=== PATIENT | female | born 1940 | race Caucasian/White ===

== ENCOUNTER 2016-06-16 09:50 | Outpatient (CLI) | payer MEDICARE, OTHER | END 2016-06-16 09:51 | disposition home or self-care (01) | DX: E03.9 Hypothyroidism, unspecified (principal) ==

== ENCOUNTER 2017-06-17 12:03 | Outpatient (CLI) | payer MEDICARE, OTHER | END 2017-06-17 12:04 | disposition EMS.NT | LOC: EMS 12:03 | PROVIDERS: ATTEND Surgery | DX: M25.511 Pain in right shoulder (principal); W18.39XA Other fall on same level, initial encounter; Y93.01 Activity, walking, marching and hiking; Y92.512 Supermarket, store or market as the place of occurrence of the external cause ==

== ENCOUNTER 2017-06-17 13:03 | Emergency (ER) | payer MEDICARE, OTHER ==
[2017-06-17] MEDS ORDERED: ACETAMINOPHEN 325 MG TABLET PO STA (14:27)
--- NOTE | 2017-06-17 14:28 | ED Physician Documentation ---
PD HPI UPPER EXT INJURY - Stated complaint Stated Complaint: R SHOULDER INJ - Chief complaint Chief Complaint: Ext Problem - History obtained from History obtained from: Patient - History of Present Illness Location: Other (She was walking on a flat surface and her knee gave out on her , that is not uncommon. She landed directly on her right shoulder and has moderate pain there. Denies head or neck injury. No other injuries.) Review of Systems Constitutional: denies: Fever, Chills Nose: denies: Rhinorrhea / runny nose, Congestion Cardiac: denies: Chest pain / pressure, Palpitations Respiratory: denies: Dyspnea PD PAST MEDICAL HISTORY - Past Medical History Past Medical History: Yes Endocrine/Autoimmune: HyPOthyroidism - Past Surgical History Past Surgical History: No - Present Medications Home Medications: Ambulatory Orders Medication Instructions Recorded Confirmed Levothyroxine [Synthroid] 150 mcg PO DAILY 01/26/15 01/26/15 HYDROcod/ACETAM 5/325 [[place] 5/325] 1 - 2 ea PO Q6H PRN #20 tablet 06/17/17 - Allergies Allergies/Adverse Reactions: Allergies Allergy/AdvReac Type Severity Reaction Status Date / Time No Known Drug Allergies Allergy Verified 06/17/17 13:45 - Social History Does the pt smoke?: No Smoking Status: Never smoker Does the pt drink ETOH?: Yes ETOH Use: Wine Does the pt have substance abuse?: No - Immunizations Immunizations are current?: No Immunizations: TDAP >10years/unknown - POLST Patient has POLST: No PD ED PE NORMAL - Vitals Vital signs reviewed: Yes - General General: Alert and oriented X 3, No acute distress, Well developed/nourished - HEENT HEENT: PERRL, EOMI - Neck Neck: Supple, no meningeal sign, No bony TTP - Respiratory Respiratory: Clear bilaterally - Back Back: No spinal TTP - Extremities Extremities: Other (Focally tender in the right upper humerus, cannot range the shoulder at all, the elbow and wrist seem nontender with good range of motion and normal sensation and radial pulse. She is tender to the upper ribs kind of in the axilla on the right. No deformity.) - Neuro Neuro: Alert and oriented X 3, Normal speech Results - Vitals Vitals: Vital Signs - 24 hr 06/17/17 06/17/17 13:41 15:47 Temperature 36.2 C L 36.8 C Heart Rate 62 68 Respiratory 20 18 Rate Blood Pressure 202/59 H 148/60 H O2 Saturation 97 97 Oxygen O2 Source Room air Departure - Departure Disposition: 01 Home, Self Care Clinical Impression: Right humeral fracture Qualifiers: Encounter type: initial encounter Humerus Location: proximal Fracture type: closed Fracture morphology: other fracture Fracture alignment: nondisplaced Qualified Code(s): S42.294A - Other nondisplaced fracture of upper end of right humerus, initial encounter for closed fracture Contusion of right chest wall Qualifiers: Encounter type: initial encounter Qualified Code(s): S20.211A - Contusion of right front wall of thorax, initial encounter Condition: Good Record reviewed to determine appropriate education?: Yes Instructions: Humerus Fx Follow-Up: [facility] [Provider Group] - Within 1 week Prescriptions: HYDROcod/ACETAM 5/325 [[place] 5/325] 1 - 2 ea PO Q6H PRN #20 tablet PRN Reason: Pain Comments: Tylenol as needed for pain. Keep the sling on for the most part until you follow-up with the orthopedic surgeon. You can follow-up with your orthopedic surgeon in [place] or the one on the [place], the one in [facility] number is listed on this form. Your blood pressure was elevated today on check into the emergency department. This does not mean that you have hypertension, it is a common phenomenon to come to the emergency department and have elevated blood pressure. I recommend that you see your primary care physician within the week to have it rechecked when you are feeling better. Discharge Date/Time: 06/17/17 15:47
--- NOTE | 2017-06-17 15:17 | XRAY Report ---
EXAM: RIGHT SHOULDER RADIOGRAPHY EXAM DATE: 06/17/2017 02:50 PM. CLINICAL HISTORY: Fell. COMPARISON: None. TECHNIQUE: 3 views. FINDINGS: Acute impacted fracture of the right humeral neck. Severe right glenohumeral degenerative joint disease with large osteophytes and joint space narrowing . Minimal acromioclavicular degenerative joint disease. No dislocation. Bones are demineralized. IMPRESSION: 1. Acute impacted fracture of the right humeral neck. 2. Severe right glenohumeral degenerative joint disease. [facility] Referring Provider Line: [phone] SITE ID: [id number]
--- NOTE | 2017-06-17 15:17 | XRAY Preliminary Report ---
Exam: XR SHOULDER 3 VIEW RT IMPRESSION: 1. Acute impacted fracture of the right humeral neck. 2. Severe right glenohumeral degenerative joint disease. [facility] SITE ID: [id number]
--- NOTE | 2017-06-17 15:20 | XRAY Preliminary Report ---
Exam: XR RIBS W/PA CHEST RT IMPRESSION: Acute impacted right humeral neck fracture. No acute rib fractures are seen. [facility] SITE ID: [id number]
--- NOTE | 2017-06-17 15:20 | XRAY Report ---
EXAM: RIGHT RIB RADIOGRAPHY EXAM DATE: 06/17/2017 02:51 PM. CLINICAL HISTORY: Rib injury. Fall. Right-sided rib pain. COMPARISON: None. TECHNIQUE: 1 view of the chest and 2 views of the ribs. FINDINGS: Acute impacted right humeral neck fracture. No acute rib fractures are seen. Normal heart size. Lungs are clear. No pleural effusion or pneumothorax. IMPRESSION: Acute impacted right humeral neck fracture. No acute rib fractures are seen. [facility] Referring Provider Line: [phone] SITE ID: [id number]
[2017-06-17 15:48] VITALS: BP 148/60
== END 2017-06-17 15:47 | disposition home or self-care (01) ==
LOC: ED 13:03
DX: S42.294A Other nondisplaced fracture of upper end of right humerus, initial encounter for closed fracture (principal); S20.211A Contusion of right front wall of thorax, initial encounter; M19.011 Primary osteoarthritis, right shoulder; R03.0 Elevated blood-pressure reading, without diagnosis of hypertension; W18.39XA Other fall on same level, initial encounter
CPT/HCPCS: 71101; 73030; 99283; A9270

== ENCOUNTER 2017-12-01 09:22 | Outpatient (CLI) | payer MEDICARE, OTHER ==
[2017-12-01 17:39] LABS: ALBUMIN 4.4 g/dL (3.2-5.5); ALBUMIN/GLOBULIN RATIO 1.5 (1.0-2.2); ALKALINE PHOSPHATASE 46 IU/L (42-121); ALT ALANINE AMINOTRANSFERASE 15 IU/L (10-60); AST ASPARTATE AMINOTRANSFERASE 22 IU/L (10-42); BUN - BLOOD UREA NITROGEN 23 mg/dL (6-20); CALCIUM 9.4 mg/dL (8.5-10.3); CARBON DIOXIDE - CO2 26 mmol/L (21-32); CHLORIDE 102 mmol/L (101-111); CHOL/HDL RATIO 2.3 (<4.4); CHOLESTEROL 256 mg/dL; CREATININE 0.7 mg/dL (0.4-1.0); GFR - MDRD 81 (>89); GLUCOSE 91 mg/dL (70-100); HDL CHOLESTEROL 110 mg/dL; LDL CHOLESTEROL,CALCULATED 134 mg/dL; LDL/HDL RATIO 1.2 (<4.4); SODIUM 135 mmol/L (135-145); TOTAL PROTEIN 7.3 g/dL (6.7-8.2); VLDL CHOLESTEROL 12 mg/dL
[2017-12-01 18:00] LABS: HGB - HEMOGLOBIN 12.8 g/dL (12.0-16.0); MEAN CORPUSCULAR HEMOGLOBIN 29.5 pg (27.0-31.0); MEAN CORPUSCULAR HGB CONC 33.6 g/dL (32.0-36.0); MEAN CORPUSCULAR VOLUME 87.8 fL (81.0-99.0); MEAN PLATELET VOLUME 7.8 fL (7.9-10.8); RED BLOOD COUNT 4.33 10^6/uL (4.20-5.40); RED CELL DISTRIBUTION WIDTH 14.2 % (12.0-15.0); WHITE BLOOD COUNT 5.5 x10^3/uL (4.8-10.8)
== END 2017-12-01 09:23 | disposition home or self-care (01) ==
LOC: LAB.F 09:22
PROVIDERS: ATTEND Internal Medicine
DX: E03.9 Hypothyroidism, unspecified (principal); R53.83 Other fatigue; E78.5 Hyperlipidemia, unspecified
CPT/HCPCS: 36415; 80053; 80061; 82306; 83036; 83721; 84443; 85027

== ENCOUNTER 2023-02-18 18:34 | Outpatient (CLI) | payer MEDICARE, OTHER | END 2023-02-18 18:35 | disposition critical access hospital (66) | LOC: EMS 18:34 | DX: S40.022A Contusion of left upper arm, initial encounter (principal); W19.XXXA Unspecified fall, initial encounter; R41.82 Altered mental status, unspecified | CPT/HCPCS: A0425; A0429 ==

== ENCOUNTER 2023-02-18 19:06 | Emergency (ER) | payer MEDICARE, OTHER ==
--- NOTE | 2023-02-18 19:39 | XRAY Report ---
PROCEDURE: Chest 1 View X-Ray INDICATIONS: AMS TECHNIQUE: One view of the chest was acquired. COMPARISON: Chest x-ray 06/17/2017 FINDINGS: Surgical changes and devices: None. Lungs and pleura: No pleural effusions or pneumothorax. Lungs are clear. Mediastinum: Mediastinal contours appear normal. Heart size is enlarged. Bones and chest wall: No suspicious bony lesions. Overlying soft tissues appear unremarkable. IMPRESSION: No acute cardiopulmonary process. Reviewed by: Barbie Ames MD on 02/18/2023 7:37 PM PST Approved by: Barbie Ames MD on 02/18/2023 7:37 PM PST Station ID: [id number]
--- NOTE | 2023-02-18 19:39 | XRAY Report ---
PROCEDURE: Humerus LT INDICATIONS: glf, significant swelling TECHNIQUE: 2 views of the humerus were acquired. COMPARISON: None. FINDINGS: Bones: Comminuted and displaced mid shaft humeral fracture. There is approximately 4.3 cm overlap of proximal distal fragments. Soft tissues: No suspicious soft tissue calcifications or masses. IMPRESSION: Comminuted and displaced mid diaphyseal humeral fracture. Reviewed by: Barbie Ames MD on 02/18/2023 7:38 PM PST Approved by: Barbie Ames MD on 02/18/2023 7:38 PM PST Station ID: [id number]
--- NOTE | 2023-02-18 19:51 | ED Physician Documentation ---
PD HPI ALTERED MENTAL STATUS - Stated complaint Stated Complaint: AMS - Chief complaint Chief Complaint: Neuro - History obtained from History obtained from: EMS - Additional information Additional information: 83-year-old female with history of hypothyroidism presents by EMS from her home for altered mental status. Patient lives at home alone. She was last seen normal 2 days ago by neighbors. They checked on her today and found her on the floor and called 911. When EMS arrived the patient was confused, thinking that she was in a motel. She did not remember falling, however there is gross d eformity to her left arm. They were able to call the patient's daughter, who confirmed that the patient is not on any blood thinners. On arrival patient is confused, she states "I do not know why I was at the hotel". She smelled strongly of urine and her left upper extremity had significant swelling and bruising. PD PAST MEDICAL HISTORY - Past Medical History Endocrine/Autoimmune: HyPOthyroidism - Past Surgical History Past Surgical History: No - Present Medications Home Medications: Ambulatory Orders Medication Instructions Recorded Confirmed Levothyroxine [Synthroid] 150 mcg PO DAILY 01/26/15 01/26/15 HYDROcod/ACETAM 5/325 [[place] 5/325] 1 - 2 ea PO Q6H PRN #20 tablet 06/17/17 - Allergies Allergies/Adverse Reactions: Allergies Allergy/AdvReac Type Severity Reaction Status Date / Time No Known Drug Allergies Allergy Verified 02/18/23 19:21 - Social History Does the pt smoke?: No Smoking Status: Never smoker Does the pt drink ETOH?: Yes Does the pt have substance abuse?: No - Immunizations Immunizations are current?: No Immunizations: TDAP >10years/unknown - POLST Patient has POLST: No PD ED PE NORMAL - Vitals Vital signs reviewed: Yes - General General: No acute distress, Other (smelling of urine, oriented x2) - Neck Neck: Supple, no meningeal sign, No bony TTP - Cardiac Cardiac: RRR - Respiratory Respiratory: No respiratory distress, Clear bilaterally - Abdomen Abdomen: Soft, Non tender, Non distended - Derm Derm: Warm and dry, No rash, Other (bruising LUE) - Extremities Extremities: Other (Deformity LUE with moderate to severe swelling. Compartments soft. 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, No motor deficit, No sensory deficit, Normal speech, Other (AOx2) Results - Vitals Vitals: Vital Signs - 24 hr 02/18/23 02/18/23 02/18/23 19:18 19:21 21:21 Temperature 36.3 C L Heart Rate 83 78 78 Respiratory 20 22 20 Rate Blood Pressure 163/68 H 163/68 H O2 Saturation 96 98 98 02/18/23 02/19/23 02/19/23 23:00 01:00 03:00 Temperature Heart Rate 83 76 80 Respiratory 20 18 16 Rate Blood Pressure 149/55 H 141/63 H 165/58 H O2 Saturation 100 99 98 Oxygen O2 Source Room air - Labs Labs: Laboratory Tests 02/18/23 02/18/23 02/18/23 19:26 19:26 19:26 WBC 16.2 H RBC 3.95 L Hgb 11.3 L Hct 34.4 L MCV 87.1 MCH 28.6 MCHC 32.8 RDW 13.2 Plt Count 300 MPV 9.7 Neut # (Auto) 13.2 H Lymph # (Auto) 1.8 Chambers # (Auto) 1.1 H Eos # (Auto) 0.0 Baso # (Auto) 0.0 Absolute Nucleated RBC 0.00 Nucleated RBC % 0.0 PT 12.3 INR 1.1 Sodium 137 Potassium 3.8 Chloride 100 L Carbon Dioxide 25 Anion Gap 12.0 BUN 24 H Creatinine 0.7 Estimated GFR (MDRD) 80 L Glucose 141 H Lactic Acid Calcium 9.7 Phosphorus 3.1 Magnesium 1.9 Total Bilirubin 0.8 AST 50 H ALT 24 Alkaline Phosphatase 55 Total Creatine Kinase 1554 H* Total Protein 7.1 Albumin 4.8 Globulin 2.3 Albumin/Globulin Ratio 2.1 Lipase < 10 L Urine Color Urine Clarity Urine pH Ur Specific [place] Urine Protein Urine Glucose (UA) Urine Ketones Urine Occult Blood Urine Nitrite Urine Bilirubin Urine Urobilinogen Ur Leukocyte Esterase Urine RBC Urine WBC Ur Squamous Epith Cells Urine Bacteria Ur Microscopic Review Urine Culture Comments Nasal Adenovirus (PCR) Nasal B. parapertussis DNA (PCR) Nasal Coronavir 229E PCR Nasal Coronavir HKU1 PCR Nasal Coronavir NL63 PCR Nasal Coronavir OC43 PCR Nasal Enterovir/Rhinovir PCR Nasal Influenza B PCR Nasal Influenza A PCR Nasal Parainfluen 1 PCR Nasal Parainfluen 2 PCR Nasal Parainfluen 3 PCR Nasal Parainfluen 4 PCR Nasal RSV (PCR) Nasal B.pertussis DNA PCR Nasal C.pneumoniae (PCR) [place] Human Metapneumo PCR Nasal M.pneumoniae (PCR) Nasal SARS-CoV-2 (PCR) 02/18/23 02/18/23 02/18/23 19:44 20:32 22:50 WBC RBC Hgb Hct MCV MCH MCHC RDW Plt Count MPV Neut # (Auto) Lymph # (Auto) Chambers # (Auto) Eos # (Auto) Baso # (Auto) Absolute Nucleated RBC Nucleated RBC % PT INR Sodium Potassium Chloride Carbon Dioxide Anion Gap BUN Creatinine Estimated GFR (MDRD) Glucose Lactic Acid 2.5 H Calcium Phosphorus Magnesium Total Bilirubin AST ALT Alkaline Phosphatase Total Creatine Kinase Total Protein Albumin Globulin Albumin/Globulin Ratio Lipase Urine Color YELLOW Urine Clarity CLEAR Urine pH 6.0 Ur Specific [place] >=1.030 H Urine Protein 30 H Urine Glucose (UA) NEGATIVE Urine Ketones 15 H Urine Occult Blood TRACE-INTA Urine Nitrite NEGATIVE Urine Bilirubin NEGATIVE Urine Urobilinogen 0.2 (NORMAL) Ur Leukocyte Esterase NEGATIVE Urine RBC 6-10 H Urine WBC 0-3 Ur Squamous Epith Cells NONE SEEN Urine Bacteria None Seen Ur Microscopic Review INDICATED Urine Culture Comments NOT INDICATED Nasal Adenovirus (PCR) NOT DETECTED Nasal B. parapertussis DNA (PCR) NOT DETECTED Nasal Coronavir 229E PCR NOT DETECTED Nasal Coronavir HKU1 PCR NOT DETECTED Nasal Coronavir NL63 PCR NOT DETECTED Nasal Coronavir OC43 PCR NOT DETECTED Nasal Enterovir/Rhinovir PCR NOT DETECTED Nasal Influenza B PCR NOT DETECTED Nasal Influenza A PCR NOT DETECTED Nasal Parainfluen 1 PCR NOT DETECTED Nasal Parainfluen 2 PCR NOT DETECTED Nasal Parainfluen 3 PCR NOT DETECTED Nasal Parainfluen 4 PCR NOT DETECTED Nasal RSV (PCR) NOT DETECTED Nasal B.pertussis DNA PCR NOT DETECTED Nasal C.pneumoniae (PCR) NOT DETECTED [place] Human Metapneumo PCR NOT DETECTED Nasal M.pneumoniae (PCR) NOT DETECTED Nasal SARS-CoV-2 (PCR) NOT DETECTED 02/19/23 02:08 WBC RBC Hgb Hct MCV MCH MCHC RDW Plt Count MPV Neut # (Auto) Lymph # (Auto) Chambers # (Auto) Eos # (Auto) Baso # (Auto) Absolute Nucleated RBC Nucleated RBC % PT INR Sodium Potassium Chloride Carbon Dioxide Anion Gap BUN Creatinine Estimated GFR (MDRD) Glucose Lactic Acid Calcium Phosphorus Magnesium Total Bilirubin AST ALT Alkaline Phosphatase Total Creatine Kinase 1595 H* Total Protein Albumin Globulin Albumin/Globulin Ratio Lipase Urine Color Urine Clarity Urine pH Ur Specific [place] Urine Protein Urine Glucose (UA) Urine Ketones Urine Occult Blood Urine Nitrite Urine Bilirubin Urine Urobilinogen Ur Leukocyte Esterase Urine RBC Urine WBC Ur Squamous Epith Cells Urine Bacteria Ur Microscopic Review Urine Culture Comments Nasal Adenovirus (PCR) Nasal B. parapertussis DNA (PCR) Nasal Coronavir 229E PCR Nasal Coronavir HKU1 PCR Nasal Coronavir NL63 PCR Nasal Coronavir OC43 PCR Nasal Enterovir/Rhinovir PCR Nasal Influenza B PCR Nasal Influenza A PCR Nasal Parainfluen 1 PCR Nasal Parainfluen 2 PCR Nasal Parainfluen 3 PCR Nasal Parainfluen 4 PCR Nasal RSV (PCR) Nasal B.pertussis DNA PCR Nasal C.pneumoniae (PCR) [place] Human Metapneumo PCR Nasal M.pneumoniae (PCR) Nasal SARS-CoV-2 (PCR) PD Medical Decision Making - ED course Complexity details: reviewed old records, reviewed results, re-evaluated patient, considered differential, d/w patient, d/w family ED course: Generalized weakness and patient found on the ground. Unknown how long patient was on the floor. Patient denies acute complaints, but does have pain in her left arm when it is jostled, indeed there is very significant deformity and bruising of the left upper extremity. Despite the swelling compartments are still soft and she is neurovascularly intact. Laboratory work shows elevated CK, intact renal function. CT of the brain and C-spine revealed no acute abnormalities. Chest x-ray is negative for acute findings. X-ray of the left humerus is significant for displaced and comminuted midshaft humeral fracture. Patient placed in coaptation splint and sling with help of nursing staff. We will repeat CK and will continue patient on IV fluids. Repeat CK shows minimal change, however no additional significant rise. We will repeat laboratory work in the morning, however since CK is stable this is reassuring. Attempted to ambulate patient, however she is profoundly weak and cannot even sit up without full support, otherwise she immediately falls back down to the bed. Anticipate a difficult discharge home. Physical therapy and Occupational Therapy consulted. Social work consulted. Family is not available at this time, EMS states that patient normally lives at home alone. Departure - Departure Clinical Impression: Elevated CK, Ground-level fall Altered mental status Qualifiers: Altered mental status type: disorientation Qualified Code(s): R41.0 - Disorientation, unspecified Humerus shaft fracture Qualifiers: Encounter type: initial encounter Fracture type: closed Fracture morphology: comminuted Fracture alignment: displaced Laterality: left Qualified Code(s): S42.352A - Displaced comminuted fracture of shaft of humerus, left arm, initial encounter for closed fracture Condition: Stable Forms: PCP List
[2023-02-18 19:52] LABS: BASOPHILS % (AUTO) 0.2 %; HCT - HEMATOCRIT 34.4 % (37.0-47.0); HGB - HEMOGLOBIN 11.3 g/dL (12.0-16.0); LYMPHOCYTES # (AUTO) 1.8 10^3/uL (1.5-3.5); LYMPHOCYTES % (AUTO) 11.2 %; MEAN CORPUSCULAR HEMOGLOBIN 28.6 pg (27.0-31.0); MEAN CORPUSCULAR HGB CONC 32.8 g/dL (32.0-36.0); MEAN CORPUSCULAR VOLUME 87.1 fL (81.0-99.0); MEAN PLATELET VOLUME 9.7 fL (7.9-10.8); MONOCYTES # (AUTO) 1.1 10^3/uL (0.0-1.0); NEUTROPHILS # (AUTO) 13.2 10^3/uL (1.5-6.6); NEUTROPHILS % (AUTO) 81.1 %; PLT - PLATELET COUNT 300 10^3/uL (130-450); RED BLOOD COUNT 3.95 10^6/uL (4.20-5.40); RED CELL DISTRIBUTION WIDTH 13.2 % (12.0-15.0); WHITE BLOOD COUNT 16.2 x10^3/uL (4.8-10.8)
[2023-02-18 20:07] LABS: ALBUMIN 4.8 g/dL (3.2-5.5); ALBUMIN/GLOBULIN RATIO 2.1 (1.0-2.2); ALKALINE PHOSPHATASE 55 IU/L (42-121); ALT ALANINE AMINOTRANSFERASE 24 IU/L (10-60); AST ASPARTATE AMINOTRANSFERASE 50 IU/L (10-42); BILIRUBIN,TOTAL 0.8 mg/dL (0.2-1.0); BUN - BLOOD UREA NITROGEN 24 mg/dL (6-20); CALCIUM 9.7 mg/dL (8.5-10.3); CARBON DIOXIDE - CO2 25 mmol/L (21-32); CHLORIDE 100 mmol/L (101-111); CREATININE 0.7 mg/dL (0.6-1.3); GFR - MDRD 80 (>89); GLUCOSE 141 mg/dL (74-104); MAGNESIUM 1.9 mg/dL (1.7-2.3); PHOSPHORUS 3.1 mg/dL (2.5-5.0); POTASSIUM 3.8 mmol/L (3.5-4.5); SODIUM 137 mmol/L (135-145); TOTAL PROTEIN 7.1 g/dL (6.4-8.9)
[2023-02-18 20:09] LABS: LIPASE < 10 U/L (11-82)
[2023-02-18 20:10] LABS: CK- CREATINE KINASE 1554 IU/L (30-223)
[2023-02-18 20:16] LABS: INR 1.1 (0.8-1.2); PT - PROTHROMBIN TIME 12.3 secs (9.9-12.6)
[2023-02-18] MEDS: SODIUM CHLORIDE 0.9% 1,000 ML IV STA ×2 (20:17→20:45)
--- NOTE | 2023-02-18 20:40 | CT Report ---
PROCEDURE: CERVICAL SPINE WO INDICATIONS: glf, ams TECHNIQUE: Noncontrast 3 mm thick sections acquired from the skull base to the T4 level. Sagittal and coronal r eformats were then constructed. For radiation dose reduction, the following was used: automated exp osure control, adjustment of mA and/or kV according to patient size. COMPARISON: None. FINDINGS: Image quality: Excellent. Bones: No fractures or dislocations. Visualized superior ribs are intact. Soft tissues: Prevertebral soft tissues are normal in thickness. No paravertebral hematomas. No ap ical pneumothoraces. IMPRESSION: No acute, displaced fracture or traumatic subluxation. Reviewed by: Ryan So on 02/18/2023 8:39 PM [facility] Approved by: Ryan So on 02/18/2023 8:39 PM [facility] Station ID: [id number]
--- NOTE | 2023-02-18 20:41 | CT Report ---
PROCEDURE: HEAD WO INDICATIONS: glf, ams TECHNIQUE: Noncontrast 4.5 mm thick angled axial sections acquired from the foramen magnum to the vertex. For r adiation dose reduction, the following was used: automated exposure control, adjustment of mA and/or kV according to patient size. COMPARISON: None. FINDINGS: Image quality: Excellent. CSF spaces: Basal cisterns are patent. No extra-axial fluid collections. Ventricles are normal in size and shape. Brain: No midline shift. No intracranial masses or hemorrhage. Aburto-white matter interface is norm al. Skull and face: Calvarium and visualized facial bones are intact, without suspicious lesions. Sinuses: Visualized sinuses and mastoids are clear. IMPRESSION: No acute intracranial pathology. Reviewed by: Ryan So on 02/18/2023 8:40 PM [facility] Approved by: Ryan So on 02/18/2023 8:40 PM [facility] Station ID: [id number]
[2023-02-18 21:29] LABS: B. PARAPERTUSSIS- RESP PCR PAN NOT DETECTED; B. PERTUSSIS- RESP PCR PANEL NOT DETECTED; C. PNEUMONIAE- RESP PCR PANEL NOT DETECTED; CORONAVIRUS 229E-RESP PCR NOT DETECTED; CORONAVIRUS HKU1-RESP PCR NOT DETECTED; CORONAVIRUS NL63-RESP PCR NOT DETECTED; CORONAVIRUS OC43-RESP PCR NOT DETECTED; HUMAN METAPNEUMOVIRUS NOT DETECTED; INFLUENZA A- RESP PCR PANEL NOT DETECTED; INFLUENZA B - RESP PCR PANEL NOT DETECTED; M. PNEUMONIAE- RESP PCR PANEL NOT DETECTED; PARAINFLUENZA VIRUS 1 NOT DETECTED; PARAINFLUENZA VIRUS 2 NOT DETECTED; PARAINFLUENZA VIRUS 3 NOT DETECTED; PARAINFLUENZA VIRUS 4 NOT DETECTED; RHINOVIRUS/ENTEROVIRUS NOT DETECTED; RSV- RESP PCR PANEL NOT DETECTED; SARS-CoV-2 -RESP PCR PANEL NOT DETECTED
[2023-02-18 23:15] LABS: BILIRUBIN,URINE NEGATIVE (NEGATIVE); GLUCOSE, URINE (UA) NEGATIVE (NEGATIVE); KETONES,URINE (UA) 15 mg/dL (NEGATIVE); LEUKOCYTE ESTERASE, URINE NEGATIVE (NEGATIVE); NITRITE,URINE NEGATIVE (NEGATIVE); OCCULT BLOOD,URINE TRACE-INTA (NEGATIVE); PROTEIN,URINE 30 mg/dL (NEGATIVE); UROBILINOGEN,URINE 0.2 (NORMAL) E.U./dL (NORMAL)
[2023-02-18 23:18] LABS: CLARITY,URINE CLEAR (CLEAR)
[2023-02-18 23:40] LABS: WBC,URINE 0-3 /HPF (0-5)
[2023-02-18 23:41] LABS: BACTERIA,URINE None Seen /HPF (None Seen); SQUAMOUS EPITHELIAL CELL,UR NONE SEEN (<= Few)
[2023-02-19] MEDS: SODIUM CHLORIDE 0.9% 1,000 ML IV STA ×2 (03:08→14:56)
[2023-02-19] MEDS: ACETAMINOPHEN 325 MG TABLET PO STA (06:20)
[2023-02-19] MEDS: oxyCODONE 5 MG TABLET PO STA (06:20)
[2023-02-19 06:41] LABS: BASOPHILS % (AUTO) 0.2 %; HCT - HEMATOCRIT 29.5 % (37.0-47.0); HGB - HEMOGLOBIN 9.6 g/dL (12.0-16.0); LYMPHOCYTES # (AUTO) 2.8 10^3/uL (1.5-3.5); LYMPHOCYTES % (AUTO) 23.3 %; MEAN CORPUSCULAR HEMOGLOBIN 28.7 pg (27.0-31.0); MEAN CORPUSCULAR HGB CONC 32.5 g/dL (32.0-36.0); MEAN CORPUSCULAR VOLUME 88.3 fL (81.0-99.0); MEAN PLATELET VOLUME 9.9 fL (7.9-10.8); MONOCYTES # (AUTO) 1.4 10^3/uL (0.0-1.0); MONOCYTES % (AUTO) 11.3 %; NEUTROPHILS # (AUTO) 7.9 10^3/uL (1.5-6.6); NEUTROPHILS % (AUTO) 64.8 %; PLT - PLATELET COUNT 238 10^3/uL (130-450); RED BLOOD COUNT 3.34 10^6/uL (4.20-5.40); RED CELL DISTRIBUTION WIDTH 13.4 % (12.0-15.0); WHITE BLOOD COUNT 12.2 x10^3/uL (4.8-10.8)
[2023-02-19 06:59] LABS: ALBUMIN 3.9 g/dL (3.2-5.5); ALBUMIN/GLOBULIN RATIO 2.2 (1.0-2.2); BILIRUBIN,TOTAL 0.7 mg/dL (0.2-1.0); CALCIUM 8.4 mg/dL (8.5-10.3); CREATININE 0.6 mg/dL (0.6-1.3); POTASSIUM 3.8 mmol/L (3.5-4.5); TOTAL PROTEIN 5.7 g/dL (6.4-8.9)
[2023-02-19] MEDS: diltiaZEM INJ 5 MG/ML VIAL IVP STA ×3 (12:28→14:56)
--- NOTE | 2023-02-19 14:54 | ED Physician Documentation ---
ED Addendum - Addendum Addendum: 02/19/23 14:52 The patient was doing okay this morning. She was evaluated by OT and PT and had a plan set up for home therapy. Family members are willing to take care of her at home orchestrated by social work. The patient was getting ready for discharge when she started having a rapid heart rate noted on monitor. She did not have any chest pain or dyspnea. She is not feeling lightheaded. Blood pressure is good. The patient's daughter was present during the initial of this and states she is not aware of the patient having any history of atrial fibrillation. The monitor and EKG were showing atrial fibrillation with a rate approximately 140. No obvious ischemic changes. Again she is without symptoms. She was did have an IV in place was given a little fluid bolus as well as dose of diltiazem 15 mg with a repeat dosing of 10 mg twice. This brought the heart rate down to approximately under 110. She still feels well. The patient however does not have any known history of atrial fibrillation for her or family member. The onset was here right in the ER so consideration could be for cardioversion versus rate control only. We will watch her for a little bit longer with the heart rate improved. We will decide on rhythm control or not as needed. 02/19/23 17:09 The patient continue with atrial fibrillation despite doses of diltiazem and actually went fast again without good consistent rate control. I did try a dose of metoprolol as well which again brought the heart rate down to approximately 110 but still fibrillation. I talked with the patient and her daughters about cardioversion and they were amenable to this. I reviewed the procedure and benefits and risks. Consent was signed. The patient was cardioverted without any complications with conversion to sinus rhythm. She awoke well without any problems. We will continue with the plan for discharging home and I will place her on a low-dose diltiazem medication. Prescription was sent to her pharmacy. Disposition: The patient discharged home in stable condition Diagnoses: 1. General weakness 2. Recent fall 3. Left humerus fracture 4. New onset atrial fibrillation with fast rate
[2023-02-19] MEDS: METOPROLOL 5 MG/5 ML VIAL IVP STA (15:56)
[2023-02-19] MEDS: PROPOFOL 200 MG/20 ML VIAL IVP STA (16:57)
--- NOTE | 2023-02-19 17:15 | ED Physician Documentation ---
Procedures - Additional Procedures Additional Procedures: cardioversion/defib (Timeout was completed. Present was respiratory therapy, nursing. The patient was on a monitor that was in sync had 150 J. We had available oxygen, suction material, end-tidal CO2. The patient was had a not quite IV. Mallampati was normal. The cardioversion was completed with 1 attempt at 150 J) Progress: The patient recovered from sedation with propofol 60 mg without any complications. Return to baseline status.
[2023-02-19 17:20] VITALS: BP 132/55; O2SAT 97
== END 2023-02-19 17:53 | disposition home or self-care (01) ==
LOC: EDUNIT# → ED 19:06
DX: S42.352A Displaced comminuted fracture of shaft of humerus, left arm, initial encounter for closed fracture (principal); W18.30XA Fall on same level, unspecified, initial encounter; Y92.009 Unspecified place in unspecified non-institutional (private) residence as the place of occurrence of the external cause; R41.82 Altered mental status, unspecified; I48.91 Unspecified atrial fibrillation; R53.1 Weakness; E03.9 Hypothyroidism, unspecified; Z11.52 Encounter for screening for COVID-19; Z79.899 Other long term (current) drug therapy
CPT/HCPCS: 36415; 80053; 81001; 81003; 82550; 83605; 83690; 83735; 84100; 85025; 85610; 87040; 87086; 87633; 92960; 93005; 99152; 99284

== ENCOUNTER 2023-02-28 13:15 | Outpatient (CLI) | payer MEDICARE, OTHER ==
--- NOTE | 2023-02-28 16:57 | XRAY Report ---
PROCEDURE: Humerus LT INDICATIONS: LEFT HUMERUS FRACTURE TECHNIQUE: 2 views of the humerus were acquired. COMPARISON: 02/18/2023 FINDINGS: Bones: Comminuted and displaced mid shaft left humerus fracture. An oblique fracture extends proxima lly to the humeral neck. Soft tissues: No suspicious soft tissue calcifications or masses. IMPRESSION: Left proximal and mid humerus fracture with no significant change in positioning. Reviewed by: Sherwin De La Rosa on 02/28/2023 3:56 PM [facility] Approved by: Sherwin De La Rosa on 02/28/2023 3:56 PM [facility] Station ID: [id number]
== END 2023-02-28 23:59 | disposition home or self-care (01) ==
LOC: DI.WOS 13:15
PROVIDERS: ATTEND Orthopaedic Surgery
DX: S42.322D Displaced transverse fracture of shaft of humerus, left arm, subsequent encounter for fracture with routine healing (principal)

== ENCOUNTER 2023-03-03 14:08 | Outpatient (CLI) | payer MEDICARE, OTHER ==
--- NOTE | 2023-03-03 16:30 | MRI Report ---
PROCEDURE: BRAIN WO INDICATIONS: CVA TECHNIQUE: Noncontrast axial T1 spin echo, axial T2 fast spin echo, sagittal and axial FLAIR, coronal T2 fast sp in echo, axial gradient echo, axial diffusion and ADC through the brain. COMPARISON: None. FINDINGS: Image quality: Excellent. CSF Spaces: Basal cisterns are patent. No extra-axial fluid collections. Ventricles are normal in size and shape. Brain: No intracranial masses or hemorrhage. Aburto/white matter interface is normal. There is mild diffuse cerebral volume loss. Brainstem appears normal. Diffusion-weighted images demonstrate no acu te ischemic insult. No chronic ischemic insults. Normal intravascular flow voids are present. Skull and face: Calvarium has normal marrow signal. Orbits appear normal. Sinuses: Sinuses and mastoids are clear. IMPRESSION: 1. Mild diffuse cerebral volume loss. 2. No acute process. No recent infarct. Reviewed by: Francesco Butcher MD on 03/03/2023 4:29 PM PST Approved by: Francesco Butcher MD on 03/03/2023 4:29 PM PST Station ID: [id number]
== END 2023-03-03 14:09 | disposition home or self-care (01) ==
LOC: DI 14:08
PROVIDERS: ATTEND Emergency Medicine
DX: I63.9 Cerebral infarction, unspecified (principal); R29.818 Other symptoms and signs involving the nervous system; I48.0 Paroxysmal atrial fibrillation; G31.89 Other specified degenerative diseases of nervous system

== ENCOUNTER 2023-07-09 07:00 | Outpatient (CLI) | payer MEDICARE, OTHER ==
--- NOTE | 2023-07-09 19:42 | XRAY Report ---
PROCEDURE: Humerus LT INDICATIONS: LEFT HUMERUS FRACTURE. Patient followed up with orthopedics in [place], no new injury, has not been wearing swelling TECHNIQUE: 2 views of the humerus were acquired. COMPARISON: Left humerus radiograph on February 28, 2023. FINDINGS: Bones: Acute on chronic mildly comminuted fracture versus increased angulation/displacement of the l eft mid humeral diaphyseal shaft with apex lateral angulation and osseous overlap of approximately 3 cm. Moderately displaced ossific fragment measuring 1.8 cm. Severe degenerative changes of the glenoh umeral joint. No suspicious bony lesions. Soft tissues: No suspicious soft tissue calcifications or masses. IMPRESSION: 1.Acute on chronic mildly comminuted fracture versus increased angulation/displacement of the left mi d humeral diaphyseal shaft with marked apex lateral angulation and osseous overlap of approximately 3 cm. 2.Severe degenerative changes of the glenohumeral joint. Reviewed by: Camelia Clark MD on 07/09/2023 7:40 PM PDT Approved by: Camelia Clark MD on 07/09/2023 7:40 PM PDT Station ID: [id number]
== END 2023-07-09 23:59 | disposition home or self-care (01) ==
LOC: DI.S 07:00
PROVIDERS: ATTEND Emergency Medicine
DX: S42.34 Spiral fracture of shaft of humerus (principal); M19.012 Primary osteoarthritis, left shoulder

== ENCOUNTER 2023-11-07 10:23 | Outpatient (CLI) | payer MEDICARE, OTHER ==
--- NOTE | 2023-11-07 17:53 | XRAY Report ---
PROCEDURE: Hip w/Pelvis 2-3V RT INDICATIONS: OSTEOARTHRITIS,HIP,RIGHT TECHNIQUE: 2 views of the hip were acquired. COMPARISON: None. FINDINGS: Bones: Normal mineralization. No acute fractures or subluxation. There is [id number] right sac roiliac joint space loss and mild sclerosis. Moderate bilateral femoral acetabular joint space loss, right minimally worse than left. There is mild marginal spur formation in the right femoral head. Soft tissues: No suspicious soft tissue calcifications or masses. IMPRESSION: Mild arthritic changes in the hip joints, right slightly worse than left. Mild degenerative change at the right sacroiliac joint. Reviewed by: Lucita Hyde MD on 11/07/2023 5:52 PM PDT Approved by: Lucita Hyde MD on 11/07/2023 5:52 PM PDT Station ID: [id number]
== END 2023-11-07 10:24 | disposition home or self-care (01) ==
LOC: DI.S 10:23
PROVIDERS: ATTEND Emergency Medicine
DX: M16.0 Bilateral primary osteoarthritis of hip (principal); M47.898 Other spondylosis, sacral and sacrococcygeal region